=== PATIENT | female | born 1960 | race Caucasian/White ===

== ENCOUNTER → 2016-06-11 | Outpatient (CLI) | payer OTHER ==
[~2016-06-11] VITALS: Ht 165.1 cm; Wt 97.1 kg
[~2016-06-11] MED LIST: ACID CONTROL150 MG PO; ADVAIR 250/501 DISK IH; ALBUTEROL2.5 MG/3 M IH; AMLODIPINE-BEN1 EAC5 PO; ANORO ELLIPTA1 EACH IH; Advair HFA 115/21 IH; BUTALB-APAP-CA1 EACH PO; CARVEDILOL12.5 MG PO; CEFTIN500 MG PO; CLINDAMYCIN HC300 MG PO; DELTASONE50 MG PO; DOXYCYCLINE HY100 M3 PO; DOXYCYCLINE HY100 MG PO; FLONASE16 G1 BOTH NARES; GABAPENTIN300 MG PO; GABAPENTIN600 MG PO; HYGROTON25 MG PO; IBUPROFEN200 M1 PO; IBUPROFEN400 MG PO; LEVOFLOXACIN500 MG PO; LISINOPRIL40 MG PO; LOTREL 10/41 CAPSULE PO; MORPHINE SULFAT15 M1 PO; MORPHINE SULFAT15 MG PO; MOTRIN800 MG PO; NEURONTIN300 MG PO; OMEPRAZOLE40 M1 PO; OXYGEN MC; PANTOPRAZOLE SO40 MG PO; PREDNISONE20 MG PO; PROAIR HFA8.5 GM IH; PROTONIX40 MG PO; PROVENTIL,2.5 MG/0.5 IH; RANITIDINE HCL150 MG PO; SPIRIVA1 INHALATI IH; SYMBICORT60 INHALAT IH; TRAMADOL HCL50 MG PO; TRICOR145 MG PO; TYLENOL REGULA325 MG PO; Tamiflu PO; VIBRAMYCIN100 M2 PO; ZANAFLEX4 MG PO
[2016-06-11 13:41] LABS: ANION GAP 10 MEQ/L (2-14); CHLORIDE 105 MEQ/L (99-109); GFR ESTIMATE (CALCULATED) > 59 mL/min/; GLUCOSE 110 mg/dL (70-99); POTASSIUM 3.8 MEQ/L (3.7-5.4); SAMPLE HEMOLYSIS CHECK 0; SAMPLE ICTERIC CHECK 0; SAMPLE LIPEMIA CHECK 0; SODIUM 141 MEQ/L (136-147); UREA NITROGEN (BUN) 13 mg/dL (9-23)
== END | disposition home or self-care (01) ==
LOC: AMB 12:17
PROVIDERS: Anesthesiology
PROC: 0DJDXZZ Inspection of Lower Intestinal Tract, External Approach (ICD-10-PCS; principal; 2016-06-11)
DX: Z12.11 Encounter for screening for malignant neoplasm of colon (principal); Z53.09 Procedure and treatment not carried out because of other contraindication; R06.2 Wheezing; I10 Essential (primary) hypertension; Z79.899 Other long term (current) drug therapy
CPT/HCPCS: 80048

== ENCOUNTER → 2016-08-27 | Outpatient (CLI) | payer OTHER ==
[~2016-08-27] VITALS: Ht 165.1 cm; Wt 97.1 kg
[2016-08-27 09:05] LABS: POINT-OF-CARE METER ID UU13113694
[2016-08-27 10:57] LABS: POINT-OF-CARE METER ID UU13113819; POINT-OF-CARE USER ID 515036437
== END | disposition home or self-care (01) ==
LOC: AMB 08:21
PROVIDERS: Internal Medicine Gastroenterology
DX: Z12.11 Encounter for screening for malignant neoplasm of colon (principal); K63.5 Polyp of colon; K59.09 Other constipation; R10.9 Unspecified abdominal pain; B37.81 Candidal esophagitis; K29.60 Other gastritis without bleeding; R11.0 Nausea; R63.4 Abnormal weight loss; J44.9 Chronic obstructive pulmonary disease, unspecified; E11.65 Type 2 diabetes mellitus with hyperglycemia; E11.49 Type 2 diabetes mellitus with other diabetic neurological complication; E11.42 Type 2 diabetes mellitus with diabetic polyneuropathy; E78.5 Hyperlipidemia, unspecified; E66.01 Morbid (severe) obesity due to excess calories; Z68.36 Body mass index [BMI] 36.0-36.9, adult; F17.200 Nicotine dependence, unspecified, uncomplicated; Z80.0 Family history of malignant neoplasm of digestive organs; Z82.49 Family history of ischemic heart disease and other diseases of the circulatory system; Z82.3 Family history of stroke; Z88.8 Allergy status to other drugs, medicaments and biological substances
CPT/HCPCS: 82948; 88108; 88305; 88312

== ENCOUNTER 2016-12-16 09:11 | Emergency (ER) | payer OTHER ==
[~2016-12-16] VITALS: Ht 165.1 cm; Wt 100.0 kg
[2016-12-16 10:04] LABS: ADD MIUA? NO; BILIRUBIN NEGATIVE; BLOOD NEGATIVE; COLOR YELLOW ((YELLOW)); GLUCOSE (STRIP) NEGATIVE; KETONES NEGATIVE; LEUKOCYTES NEGATIVE; NITRITE NEGATIVE; PROTEIN (STRIP) NEGATIVE; SPECIFIC GRAVITY 1.018 (1.000-1.030); UCUL ADDED? NO; UROBILINOGEN 0.2 MG/DL (0.2-1.0)
[2016-12-16 10:09] LABS: HEMATOCRIT 42.4 % (36.0-46.0); MCH 31.5 PG (29.0-34.0); MCV 95.5 FL (83-99); MEAN PLAT.VOLUME 9.6 uM^3 (9.5-12.4); PLATELET COUNT 236 K/uL (156-360); RBC DIS.WIDTH-CV 13.7 % (11.8-14.6); RBC DIS.WIDTH-SD 48.6 % (39-53); RED BLOOD COUNT 4.44 M/uL (3.80-5.20); WHITE BLOOD COUNT 15.3 K/uL (4.1-10.2)
[2016-12-16 10:19] LABS: CHLORIDE 104 mEq/L (99-109); POTASSIUM 3.8 mEq/L (3.7-5.4); SODIUM 139 mEq/L (136-147)
[2016-12-16 10:22] LABS: GLUCOSE 148 mg/dL (70-99)
[2016-12-16 10:23] LABS: ANION GAP 12 MEQ/L (2-14)
[2016-12-16 10:24] LABS: TOTAL BILIRUBIN 0.4 mg/dL (0.0-1.0)
[2016-12-16 10:25] LABS: ALKALINE PHOSPHATASE 119 IU/L (3-129); GFR ESTIMATE (CALCULATED) > 59 mL/min/
[2016-12-16 10:26] LABS: UREA NITROGEN (BUN) 14 mg/dL (9-23)
[2016-12-16 10:29] LABS: LIPASE 6 U/L (1.0-51.0)
[2016-12-16] MEDS ORDERED: BENTYL20 MG PO (12:21)
[2016-12-16 12:49] VITALS: BP 129/57
== END 2016-12-16 12:50 | disposition home or self-care (01) ==
LOC: EME 09:11
PROVIDERS: Nurse Practitioner Family
DX: R10.9 Unspecified abdominal pain (principal); D72.829 Elevated white blood cell count, unspecified; E11.65 Type 2 diabetes mellitus with hyperglycemia; K76.0 Fatty (change of) liver, not elsewhere classified; M79.7 Fibromyalgia; K21.9 Gastro-esophageal reflux disease without esophagitis; J45.909 Unspecified asthma, uncomplicated; I10 Essential (primary) hypertension; Z99.81 Dependence on supplemental oxygen; Z79.891 Long term (current) use of opiate analgesic; F17.200 Nicotine dependence, unspecified, uncomplicated
CPT/HCPCS: 76705; 80053; 81003; 83690; 85027; 93005; 99281; 99284; J1885; J2270; J7030

== ENCOUNTER 2017-04-22 01:30 | Inpatient (IN) | payer OTHER ==
[2017-04-22] VITALS (11 sets, daily range): BP systolic 109–169; BP diastolic 50–75
[~2017-04-22] VITALS: Ht 165.1 cm; Wt 93.9 kg
[~2017-04-22 01:30] MED LIST changes: +BENTYL20 MG PO; -OMEPRAZOLE40 M1 PO; +TYLENOL EXTRA500 MG PO; -TYLENOL REGULA325 MG PO
[2017-04-22 02:18] LABS: BASOPHIL (%) 0.3 % (0-1); EOSINOPHIL (%) 0.7 % (0-5); EOSINOPHIL COUNT 0.1 K/uL (0-0.3); HEMATOCRIT 44.4 % (36.0-46.0); HEMOGLOBIN 14.2 G/DL (11.9-15.5); IMMATURE GRANULOCYTE (%) 0.4 % (0.0-0.7); LYMPHOCYTE (%) 10.1 % (15-42); LYMPHOCYTE COUNT 0.7 K/uL (1.0-2.8); MCH 30.3 PG (29.0-34.0); MCV 94.9 FL (83-99); MONOCYTE (%) 14.2 % (3-12); NEUTROPHIL (%) 74.3 % (45-76); PLATELET COUNT 183 K/uL (156-360); RBC DIS.WIDTH-CV 15.1 % (11.8-14.6); RBC DIS.WIDTH-SD 53.3 % (39-53); RED BLOOD COUNT 4.68 M/uL (3.80-5.20); WHITE BLOOD COUNT 6.7 K/uL (4.1-10.2)
[2017-04-22 02:33] LABS: ALBUMIN 3.9 g/dL (3.2-4.8); CHLORIDE 102 mEq/L (99-109); POTASSIUM 4.1 mEq/L (3.7-5.4); SODIUM 138 mEq/L (136-147)
[2017-04-22 02:35] LABS: GLUCOSE 177 mg/dL (70-99); TOTAL PROTEIN 6.3 g/dL (6.4-8.3)
[2017-04-22 02:37] LABS: TOTAL BILIRUBIN 0.3 mg/dL (0.0-1.0)
[2017-04-22 02:39] LABS: ALKALINE PHOSPHATASE 99 IU/L (3-129); CREATININE 0.7 mg/dL (0.6-1.3); GFR ESTIMATE (CALCULATED) > 59 mL/min/
[2017-04-22 02:40] LABS: UREA NITROGEN (BUN) 12 mg/dL (9-23)
[2017-04-22 02:41] LABS: AST (GOT) 12 IU/L (2-34)
[2017-04-22 02:42] LABS: ALT (GPT) 16 IU/L (3-49); TROP-I INTERPRETATION NEGATIVE; TROPONIN-I < 0.01 ng/mL (0.0-0.30)
[2017-04-22] MEDS ORDERED: DURAGESIC12 MCG TD (07:46)
[2017-04-22 09:19] LABS: BASE EXCESS -0.4 mEq/L (-3 to +3); BICARBONATE 27.1 mEq/L (22-26); CARBOXY HGB 1.3 % (0-5); COMMENTS - BLOOD GASES A+C+; DEVICE NCHHF; FI02 80 %; O2 FLOW 35 L/MIN; PCO2 55 mm Hg (35-45); PO2 76 mm Hg (80-100); SITE LR
[2017-04-22] MEDS ORDERED: MOVANTIK25 MG PO (09:48)
[2017-04-22] MEDS ORDERED: ONDANSETRON HCL4 MG PO (09:49)
[2017-04-22] MEDS ORDERED: COLACE100 MG PO (09:49)
[2017-04-22] MEDS ORDERED: IBUPROFEN200 M1 PO (09:50)
[2017-04-23] VITALS (10 sets, daily range): BP systolic 106–155; BP diastolic 57–91
[2017-04-23 05:27] LABS: BASOPHIL (%) 0.1 % (0-1); EOSINOPHIL (%) 0 % (0-5); HEMATOCRIT 42.1 % (36.0-46.0); HEMOGLOBIN 13.3 G/DL (11.9-15.5); IMMATURE GRANULOCYTE (%) 0.4 % (0.0-0.7); LYMPHOCYTE (%) 5.4 % (15-42); LYMPHOCYTE COUNT 0.4 K/uL (1.0-2.8); MCH 29.7 PG (29.0-34.0); MCHC 31.6 G/DL (30.0-36.0); MONOCYTE (%) 6.9 % (3-12); MONOCYTE COUNT 0.5 K/uL (0-0.8); NEUTROPHIL (%) 87.2 % (45-76); PLATELET COUNT 185 K/uL (156-360); RBC DIS.WIDTH-CV 14.3 % (11.8-14.6); RBC DIS.WIDTH-SD 49.8 % (39-53); RED BLOOD COUNT 4.48 M/uL (3.80-5.20); WHITE BLOOD COUNT 6.9 K/uL (4.1-10.2)
[2017-04-23 05:57] LABS: ALBUMIN 3.7 G/DL (3.2-4.8); ALKALINE PHOSPHATASE 80 IU/L (3-129); ALT (GPT) 12 IU/L (3-49); AST (GOT) 9 IU/L (2-34); CHLORIDE 105 MEQ/L (99-109); CREATININE 0.5 MG/DL (0.6-1.3); GFR ESTIMATE (CALCULATED) > 59 mL/min/; GLUCOSE 190 mg/dL (70-99); POTASSIUM 4.2 MEQ/L (3.7-5.4); SODIUM 140 MEQ/L (136-147); TOTAL BILIRUBIN 0.3 MG/DL (0.0-1.0); TOTAL PROTEIN 6.3 G/DL (6.4-8.3); UREA NITROGEN (BUN) 10 mg/dL (9-23)
[2017-04-24 04:48] VITALS: BP 134/60
[2017-04-24 05:26] LABS: BASOPHIL (%) 0.1 % (0-1); EOSINOPHIL (%) 0 % (0-5); HEMATOCRIT 43.9 % (36.0-46.0); HEMOGLOBIN 13.6 G/DL (11.9-15.5); IMMATURE GRANULOCYTE (%) 0.3 % (0.0-0.7); LYMPHOCYTE (%) 5.1 % (15-42); LYMPHOCYTE COUNT 0.5 K/uL (1.0-2.8); MCH 29.4 PG (29.0-34.0); MONOCYTE (%) 5.1 % (3-12); MONOCYTE COUNT 0.5 K/uL (0-0.8); NEUTROPHIL (%) 89.4 % (45-76); PLATELET COUNT 190 K/uL (156-360); RBC DIS.WIDTH-CV 14.3 % (11.8-14.6); RBC DIS.WIDTH-SD 50.7 % (39-53); RED BLOOD COUNT 4.62 M/uL (3.80-5.20)
[2017-04-24 06:01] LABS: ALBUMIN 3.6 G/DL (3.2-4.8); ALKALINE PHOSPHATASE 77 IU/L (3-129); ALT (GPT) 14 IU/L (3-49); AST (GOT) 10 IU/L (2-34); CHLORIDE 104 MEQ/L (99-109); CREATININE 0.6 MG/DL (0.6-1.3); GFR ESTIMATE (CALCULATED) > 59 mL/min/; GLUCOSE 178 mg/dL (70-99); POTASSIUM 4.4 MEQ/L (3.7-5.4); SODIUM 142 MEQ/L (136-147); TOTAL BILIRUBIN 0.3 MG/DL (0.0-1.0); TOTAL PROTEIN 6.2 G/DL (6.4-8.3); UREA NITROGEN (BUN) 18 mg/dL (9-23)
[2017-04-24 08:37] VITALS: BP 167/82
[2017-04-24 11:49] VITALS: BP 156/75
[2017-04-24 15:49] VITALS: BP 193/100
[2017-04-24 21:03] VITALS: BP 175/73
[2017-04-24 23:41] VITALS: BP 171/72
[2017-04-25 04:25] VITALS: BP 168/80
[2017-04-25 05:16] LABS: CHLORIDE 101 mEq/L (99-109); POTASSIUM 4.7 mEq/L (3.7-5.4); SODIUM 140 mEq/L (136-147)
[2017-04-25 05:18] LABS: GLUCOSE 189 mg/dL (70-99)
[2017-04-25 05:22] LABS: CREATININE 0.7 mg/dL (0.6-1.3); GFR ESTIMATE (CALCULATED) > 59 mL/min/
[2017-04-25 05:23] LABS: UREA NITROGEN (BUN) 22 mg/dL (9-23)
[2017-04-25 08:43] VITALS: BP 153/79
[2017-04-25 11:09] VITALS: BP 145/66
[2017-04-25 17:17] VITALS: BP 143/79
[2017-04-25 19:15] VITALS: BP 169/79
[2017-04-25 22:33] VITALS: BP 130/69
[2017-04-26 03:34] VITALS: BP 123/61
[2017-04-26 06:32] LABS: CHLORIDE 99 MEQ/L (99-109); CREATININE 0.6 MG/DL (0.6-1.3); GFR ESTIMATE (CALCULATED) > 59 mL/min/; GLUCOSE 211 mg/dL (70-99); POTASSIUM 4.6 MEQ/L (3.7-5.4); SODIUM 141 MEQ/L (136-147); UREA NITROGEN (BUN) 24 mg/dL (9-23)
[2017-04-26 07:20] VITALS: BP 151/72
[2017-04-26 11:26] VITALS: BP 137/65
[2017-04-26 13:17] LABS: HEMOGLOBIN A1c (GLYCOHEMOGLOB) 6.9 % (Below 5.7)
[2017-04-26 15:15] VITALS: BP 132/63
[2017-04-26 18:56] VITALS: BP 141/81
[2017-04-26 22:24] VITALS: BP 122/62
[2017-04-27 03:53] VITALS: BP 124/58
[2017-04-27 06:01] LABS: HEMATOCRIT 46.9 % (36.0-46.0); HEMOGLOBIN 14.9 G/DL (11.9-15.5); MCH 29.2 PG (29.0-34.0); MCHC 31.8 G/DL (30.0-36.0); PLATELET COUNT 197 K/uL (156-360); RBC DIS.WIDTH-CV 14.2 % (11.8-14.6); WHITE BLOOD COUNT 6.7 K/uL (4.1-10.2)
[2017-04-27 06:12] LABS: ALBUMIN 3.8 G/DL (3.2-4.8); ALKALINE PHOSPHATASE 75 IU/L (3-129); AST (GOT) 9 IU/L (2-34); CHLORIDE 98 MEQ/L (99-109); CREATININE 0.6 MG/DL (0.6-1.3); GFR ESTIMATE (CALCULATED) > 59 mL/min/; GLUCOSE 178 mg/dL (70-99); POTASSIUM 4.5 MEQ/L (3.7-5.4); SODIUM 139 MEQ/L (136-147); TOTAL PROTEIN 6.4 G/DL (6.4-8.3); UREA NITROGEN (BUN) 23 mg/dL (9-23)
[2017-04-27 06:14] LABS: ALT (GPT) 28 IU/L (3-49); TOTAL BILIRUBIN 0.4 MG/DL (0.0-1.0)
[2017-04-27 06:19] LABS: BASOPHIL (%) 0.3 % (0-1); EOSINOPHIL (%) 0 % (0-5); IMMATURE GRANULOCYTE (%) 0.7 % (0.0-0.7); LYMPHOCYTE (%) 12.1 % (15-42); LYMPHOCYTE COUNT 0.8 K/uL (1.0-2.8); MONOCYTE (%) 10.3 % (3-12); MONOCYTE COUNT 0.7 K/uL (0-0.8); NEUTROPHIL (%) 76.6 % (45-76); NEUTROPHIL COUNT 5.1 K/uL (1.8-6.4)
[2017-04-27 08:00] VITALS: BP 173/77
[2017-04-27 12:16] VITALS: BP 140/66
[2017-04-27] MEDS ORDERED: DOXYCYCLINE HY100 M3 PO (12:20)
[2017-04-27] MEDS ORDERED: AUGMENTIN875 MG PO (12:21)
[2017-04-27] MEDS ORDERED: CALCIUM 500 MG1 EACH PO (12:23)
[2017-04-27] MEDS ORDERED: PREDNISONE10 MG PO (12:24)
[2017-04-27] MEDS ORDERED: MYCOSTATIN 100,60 ML MM ×2 (12:24→12:29)
[2017-04-27 16:09] VITALS: BP 130/60
== END 2017-04-27 17:02 | disposition home or self-care (01) | DRG 189 ==
LOC: EME 01:30 → EDOF 04:07 → 4WEST 04:07 → ENRESERV 04:08 → 4WEST 05:23 → ENRESERV 04-23 12:28 → CANRESERV 04-23 12:34 → ENRESERV 04-23 21:05 → 4EAST 04-23 22:36
PROVIDERS: Emergency Medicine; Family Medicine; Hospitalist; Internal Medicine
DX: J96.21 Acute and chronic respiratory failure with hypoxia (principal); J15.9 Unspecified bacterial pneumonia; J44.1 Chronic obstructive pulmonary disease with (acute) exacerbation; E78.5 Hyperlipidemia, unspecified; F17.200 Nicotine dependence, unspecified, uncomplicated; J18.9 Pneumonia, unspecified organism; G47.33 Obstructive sleep apnea (adult) (pediatric); G89.29 Other chronic pain; F41.9 Anxiety disorder, unspecified; K21.9 Gastro-esophageal reflux disease without esophagitis; B37.0 Candidal stomatitis; J44.0 Chronic obstructive pulmonary disease with (acute) lower respiratory infection; Z91.19 Patient's noncompliance with other medical treatment and regimen; Z82.49 Family history of ischemic heart disease and other diseases of the circulatory system; Z82.5 Family history of asthma and other chronic lower respiratory diseases; Z82.3 Family history of stroke; Z99.81 Dependence on supplemental oxygen; Z79.899 Other long term (current) drug therapy; Z71.6 Tobacco abuse counseling
CPT/HCPCS: 36600; 71045; 71046; 71250; 80048; 80053; 81003; 82803; 82948; 83036; 83605; 84484; 85025; 85027; 87040; 87070; 87205; 87502; 87641; 93005; 94640; 94640 76; 94644; 94760; 94799; 99202; 99281; 99285; J1100; J1644; J1815; J2543; J2920; J2930; J3370; J7030; J7050; J7644